=== PATIENT | female | born 1980 | race Caucasian/White ===

== ENCOUNTER → 2017-04-04 | Outpatient (CLI) | payer OTHER ==
--- NOTE | 2017-04-04 18:56 | US ---
EXAMINATION TYPE: US pelvic complete DATE OF EXAM: 04/04/2017 COMPARISON: US 2016 CLINICAL HISTORY: N92.1 Metrorrhagia. gen pelvic pain TECHNIQUE: Transabdominal (TA) EXAM MEASUREMENTS: Uterus: 10.5 x 5.4 x 5.5 cm Endometrial Stripe: 0.7 cm Right Ovary: 2.5 x 1.9 x 1.1 cm Left Ovary: 3.7 x 2.9 x 1.3 cm 1. Uterus: Anteverted wnl 2. Endometrium: wnl 3. Right Ovary: wnl 4. Left Ovary: wnl 5. Bilateral Adnexa: wnl 6. Posterior cul-de-sac: no free fluid seen IMPRESSION: Normal transabdominal pelvic sonogram.
== END | disposition home or self-care (01) ==
LOC: RADUSWWP 16:19
PROVIDERS: ATTEND Family Medicine
DX: N92.1 Excessive and frequent menstruation with irregular cycle (principal)
CPT/HCPCS: 76856

== ENCOUNTER 2017-12-19 16:07 | Emergency (ER) | payer OTHER ==
[2017-12-19 16:32] VITALS: RESP 18
--- NOTE | 2017-12-19 16:37 | ED ---
General Adult HPI - General Chief complaint: Extremity Problem,Nontraumatic Stated complaint: rt leg pain Time Seen by Provider: 12/19/17 16:36 Source: patient Mode of arrival: ambulatory Limitations: no limitations - History of Present Illness Initial comments: Patient sent to ER for Doppler of her right lower extremity by primary care physician. Patient states she's had localized pain and swelling distal medial right lower leg for the past 2 days. Patient states elevating the leg helps. Patient states no history of DVT, however she states she's had superficial varicose veins, and this feels similar. Patient denies numbness or weakness in the leg. Patient denies any trauma to the leg. Denies rashes or changes in temperature, denies color change. Denies chest pain, shortness of breath or palpitations. - Related Data Home Medications Medication Instructions Recorded Confirmed Ibuprofen [Motrin Ib] 400 mg PO Q6HR PRN 12/19/17 12/19/17 Levothyroxine Sodium [Synthroid] 150 mcg PO DAILY 12/19/17 12/19/17 Norethindrone [Gaby] 0.35 mg PO DAILY 12/19/17 12/19/17 Allergies Allergy/AdvReac Type Severity Reaction Status Date / Time No Known Allergies Allergy Verified 12/19/17 16:47 Review of Systems ROS Statement: Those systems with pertinent positive or pertinent negative responses have been documented in the HPI. ROS Other: All systems not noted in ROS Statement are negative. Constitutional: Denies: fever, chills Eyes: Reports: as per HPI. Denies: vision change ENT: Denies: congestion Respiratory: Denies: cough, dyspnea Cardiovascular: Reports: edema. Denies: chest pain, palpitations, dyspnea on exertion, syncope Endocrine: Denies: fatigue Gastrointestinal: Denies: abdominal pain Genitourinary: Denies: frequency Musculoskeletal: Reports: other (Pain and swelling right distal medial leg). Denies: back pain, joint swelling, arthralgia Skin: Denies: rash, lesions, change in color Neurological: Denies: headache Hematological/Lymphatic: Reports: other (Denies history of clotting disorder) Past Medical History Past Medical History: Thyroid Disorder Additional Past Medical History / Comment(s): fibromyalgia History of Any Multi-Drug Resistant Organisms: None Reported Past Surgical History: No Surgical Hx Reported Past Psychological History: No Psychological Hx Reported Smoking Status: Current every day smoker Past Alcohol Use History: None Reported Past Drug Use History: Marijuana General Exam - General Exam Comments Initial Comments: Sitting up on bed. No acute distress. Conversing normally. Calm, pleasant. Smiling. Not appear in pain. Well-appearing Limitations: no limitations General appearance: alert, in no apparent distress Head exam: Present: atraumatic, normocephalic Eye exam: Present: normal appearance, PERRL, EOMI ENT exam: Present: mucous membranes moist Neck exam: Present: normal inspection Respiratory exam: Present: normal lung sounds bilaterally. Absent: respiratory distress, wheezes, rales, rhonchi, accessory muscle use Cardiovascular Exam: Present: regular rate, normal rhythm GI/Abdominal exam: Present: soft. Absent: distended, tenderness Extremities exam: Present: tenderness, normal capillary refill, other (Minimal localized edema with mild tenderness palpation 4 cm diameter region of the medial right lower leg, above the malleolus. No calf tenderness. Right lower extremity neurovascularly intact. Prominent superficial veins on the right lower extremity in the region of the knee. Lower extremities with intact perfusion and warmth bilaterally.). Absent: joint swelling, calf tenderness Neurological exam: Present: alert, oriented X3 Psychiatric exam: Present: normal affect, normal mood Skin exam: Present: warm, dry, intact, normal color. Absent: rash, cyanosis, diaphoretic, erythema, pallor Course Vital Signs 12/19/17 16:28 Temperature 98.6 F Pulse Rate 95 Respiratory 18 Rate Blood Pressure 139/83 O2 Sat by Pulse 100 Oximetry Medical Decision Making - Medical Decision Making Doppler ultrasound negative for DVT Symptoms likely secondary superficial thrombophlebitis, discussed elevation, warm compresses, NSAID therapy. Patient agrees to follow primary care physician. Return to ER for new or worsening symptoms. At this time there is no sign of overlying cellulitis or infection. Disposition Clinical Impression: Superficial thrombophlebitis Disposition: HOME SELF-CARE Condition: Good Instructions: Superficial Thrombophlebitis (ED) Additional Instructions: Follow-up primary care physician. Return to ER for new or worsening symptoms Is patient prescribed a controlled substance at discharge?: No Referrals: Lori Fairbanks MD [Primary Care Provider] - 1-2 days
--- NOTE | 2017-12-19 17:58 | US ---
EXAMINATION TYPE: US venous doppler duplex LE RT DATE OF EXAM: 12/19/2017 5:24 PM COMPARISON: NONE CLINICAL HISTORY: Pain. redness and pain at varicose vessels in lower calf SIDE PERFORMED: Right TECHNIQUE: The lower extremity deep venous system is examined utilizing real time linear array sonog yarely with graded compression, doppler sonography and color-flow sonography. VESSELS IMAGED: External Iliac Vein (EIV) Common Femoral Vein Deep Femoral Vein Greater Saphenous Vein * Femoral Vein Popliteal Vein Small Saphenous Vein * Proximal Calf Veins (* superficial vessels) FINDINGS: Grayscale, color doppler, spectral doppler imaging performed of the deep veins of the lower extremities. There is normal flow, compressibility, vascular waveforms. Appears negative for DVT; i nternal debris with no color fill and non compressible seen at area of pain at right lower calf varic ose vessels. Rouleaux flow noted at varicose vessels in thigh. IMPRESSION: NEGATIVE FOR DVT, RIGHT LOWER EXTREMITY.
[2017-12-19 18:46] VITALS: BP 124/83; PULSE 96; TEMP 97.5
== END 2017-12-19 18:48 | disposition home or self-care (01) ==
LOC: EC 16:07
DX: I80.9 Phlebitis and thrombophlebitis of unspecified site (principal); E07.9 Disorder of thyroid, unspecified; F17.200 Nicotine dependence, unspecified, uncomplicated; Z79.3 Long term (current) use of hormonal contraceptives; Z79.899 Other long term (current) drug therapy
CPT/HCPCS: 99283